=== PATIENT | female | born 2005 | race Caucasian/White ===

== ENCOUNTER 2023-08-26 17:10 | Emergency (ER) | payer OTHER ==
[2023-08-26] MEDS ORDERED: Ketorolac Tromethamine 30 MG (1 mL) VIAL ONE (17:54)
[2023-08-26] MEDS ORDERED: Ondansetron ODT 4 MG TAB ONE (17:55)
[2023-08-26] MEDS ORDERED: Mineral Oil ENEMA ONE (18:07)
[2023-08-26] MEDS ORDERED: Dicyclomine 20 MG TAB ONE (18:23)
== END 2023-08-26 19:29 | disposition home or self-care (01) ==
LOC: CSHERS 17:10
DX: R10.9 Unspecified abdominal pain (principal)
CPT/HCPCS: 74019; 96372; J1885; Q0162